=== PATIENT | male | born 1990 | race Caucasian/White ===

== ENCOUNTER 2017-05-06 15:52 | Emergency (ER) | payer OTHER ==
[~2017-05-06] VITALS: Ht 160 cm; Wt 60.0 kg
[2017-05-06 15:58] VITALS: Ht 160 cm; Wt 60.0 kg
[2017-05-06] MEDS ORDERED: ONDANSETRON 4 MG INJ IV STA (16:08)
[2017-05-06] MEDS ORDERED: morphine 4 MG/ML VIAL IV STA (16:08)
[2017-05-06] MEDS ORDERED: SOD CHLORIDE 0.9% 1,000 ML IV STA (16:08)
[2017-05-06 16:40] LABS: BASOPHIL # 0.1 10^3/ul (0.0-0.1); BASOPHILS % 1.2 % (0.0-2.0); EOSINOPHILS # 0.3 10^3/ul (0.0-0.5); EOSINOPHILS % 4.1 % (0.0-7.0); HEMATOCRIT 41.3 % (42.0-52.0); HEMOGLOBIN 14.4 g/dl (14.0-18.0); LYMPHOCYTES # 2.5 10^3/ul (0.8-2.9); MEAN CORPUSCULAR HEMOGLOBIN 31.4 pg (29.0-33.0); MEAN CORPUSCULAR HGB CONC 34.9 g/dl (32.0-37.0); MEAN CORPUSCULAR VOLUME 90.2 fl (82.0-101.0); MEAN PLATELET VOLUME 8.9 fl (7.4-10.4); MONOCYTE # 0.4 10^3/ul (0.3-0.9); MONOCYTES % 5.5 % (0.0-11.0); NEUTROPHIL # 4.3 10^3/ul (1.6-7.5); NEUTROPHILS % 55.9 % (39.0-77.0); PLATELET COUNT 205 10^3/UL (140-415); RED BLOOD COUNT 4.58 10^6/ul (4.70-6.10); RED CELL DISTRIBUTION WIDTH 12.6 % (11.5-14.5); WHITE BLOOD COUNT 7.6 10^3/ul (4.8-10.8)
[2017-05-06] MEDS ORDERED: LORAZEPAM 2 MG INJ IV ONE (17:30)
--- NOTE | 2017-05-06 17:30 | RADRPT ---
AMENDMENT: 05/06/2017 6:50:00 PM Jez Zapata M.D Correction in the Impression: 1. Findings which may represent an ileus versus enterocolitis as described above. PROCEDURE: CT abdomen and pelvis without IV contrast. CLINICAL INDICATION: Abdominal pain TECHNIQUE: CT scan of the abdomen and pelvis without contrast was performed on the [employer] volumetric [address] scanner. The patient was scanned without intravenous contrast. Coronal and sagittal refo rmatted images were obtained from the axial source images. The CTDI vol is 4.03 mGy and the DLP is 2 04 mGy-cm. COMPARISON: None. FINDINGS: CT abdomen: Emphysematous changes in the lung bases is seen. The heart size is not enlarged and is without fior cardial thickening or effusion. The liver is normal in size and is without focal mass or intrahepatic biliary dilatation. Extensive fatty infiltration of the liver is seen. The spleen is normal in size and homogeneous in density. T he stomach is grossly unremarkable. pancreatic duct is mildly prominent in size. The remainder of the pancreas as visualized is normal. The gallbladder has been removed. No common bile duct dilata tion is seen. The adrenal glands are symmetric and normal. The kidneys are symmetrically unremarkab le as well. No renal calculus or obstructive uropathy or mass lesion is seen. The aorta is of normal in caliber. There is no retroperitoneal lymphadenopathy. The bruno hepatis region is clear. The Save small bowel is distended and fluid-filled. In addition, the right hemico kendrick and transverse colon are distended and fluid-filled. Prominent lymph nodes in the central mesent victor manuel are seen. No inflammatory changes in the periappendiceal region is seen. CT pelvis: The pelvic organs are normal. The pelvic sidewalls and inguinal regions are clear. No pelvic mass, lymphadenopathy, or free fluid is seen. No acute inflammation is seen. The urinary bladder is wit hin normal limits. The surrounding osseous structures are unremarkable. No osteolytic or osteoblastic lesion is detect ed. IMPRESSION: 1. Findings which may represent an ileus versus under colitis as described above. 2. Prominent mesenteric lymph nodes which may be reactive in nature. 3. Extensive fatty infiltration of the liver. 4. Status post cholecystectomy. 5. Mildly prominent pancreatic duct. RPTAT: HPNM Roger Zapata, Physician Date Time Electronically viewed and signed by Roger Zapata, Physician on 05/06/2017 18:49 /
[2017-05-06 17:35] LABS: ALBUMIN/GLOBULIN RATIO 1.81; CALCIUM 8.1 mg/dl (8.4-10.2); CREATININE 0.8 mg/dl (0.61-1.24); POTASSIUM 3.1 mmol/L (3.5-5.1); TOTAL PROTEIN 6.2 g/dl (6.1-8.1)
[2017-05-06] MEDS ORDERED: ONDA4TAB14 PO (17:57)
[2017-05-06] MEDS ORDERED: HYDR-902 PO (17:57)
[2017-05-06 18:05] VITALS: BP 129/88; PULSE 101; RESP 20
--- NOTE | 2017-05-06 18:50 | ERD ---
ER Documentation Chief Complaint Date/Time DATE: 05/06/17 TIME: 18:48 Chief Complaint ABDOMINAL PAIN AND NAUSEA HPI Patient is a 26-year-old male with hypertension and short-bowel syndrome who presents with "abdominal pain". He said that he has had short bowel syndrome since . He has had abdominal pain since then. He said that recently the pain got worse. It is left-sided abdominal pain is constant and sharp in nature. He has no fevers. He has had vomiting and diarrhea. He does admit to alcohol today. Upon review of old medical records the patient one previous visit to the ER in 2016. ROS All systems reviewed and are negative except as per history of present illness. Medications Home Meds Active Scripts Ondansetron (Ondansetron Odt) 4 Mg Tab.rapdis, 4 MG PO Q6H Y for NAUSEA AND/OR VOMITING, #30 TAB Prov:JEREMY CAPELLAN MD 05/06/17 Hydrocodone/Acetaminophen ([place] 10-325 Tablet) 1 Each Tablet, 1 TAB PO Q6H Y for PAIN, #7 TAB Prov:JEREMY CAPELLAN MD 05/06/17 Allergies Allergies: Coded Allergies: erythromycin base (Unverified Allergy, Unknown, 05/06/17) PMhx/Soc Medical and Surgical Hx: pt denies Surgical Hx Hx Psychiatric Problems: Yes Hx Miscellaneous Medical Probl: Yes (short bowel syndrome) Hx Alcohol Use: Yes (alcoholic ) Hx Substance Use: No (unknown ) Smoking Status: Former smoker FmHx Family History: diabetes Physical Exam Vitals Vital Signs Date Time Temp Pulse Resp B/P Pulse Ox O2 Delivery O2 Flow Rate FiO2 05/06/17 18:05 101 20 129/88 99 Room Air 05/06/17 15:58 98.1 94 18 122/76 95 Physical Exam Const: Moderate distress secondary to pain Head: Atraumatic Eyes: Normal Conjunctiva ENT: Normal External Ears, Nose and Mouth. Neck: Full range of motion..~ No meningismus. Resp: Clear to auscultation bilaterally Cardio: Regular rate and rhythm, no murmurs Abd: Diffuse tenderness to palpation without rebound or guarding Skin: No petechiae or rashes Back: No midline or flank tenderness Ext: No cyanosis, or edema Neur: Awake and alert Psych: Normal Mood and Affect Result Diagram: 05/06/17 1625 05/06/17 1705 Results 24 hrs Laboratory Tests Test 05/06/17 16:25 05/06/17 17:05 White Blood Count 7.610^3/ul Red Blood Count 4.5810^6/ul Hemoglobin 14.4g/dl Hematocrit 41.3% Mean Corpuscular Volume 90.2fl Mean Corpuscular Hemoglobin 31.4pg Mean Corpuscular Hemoglobin Concent 34.9g/dl Red Cell Distribution Width 12.6% Platelet Count 98104^3/UL Mean Platelet Volume 8.9fl Neutrophils % 55.9% Lymphocytes % 33.0% Monocytes % 5.5% Eosinophils % 4.1% Basophils % 1.2% Nucleated Red Blood Cells % 0.0/100WBC Neutrophils # 4.310^3/ul Lymphocytes # 2.510^3/ul Monocytes # 0.410^3/ul Eosinophils # 0.310^3/ul Basophils # 0.110^3/ul Nucleated Red Blood Cells # 0.010^3/ul Sodium Level 150mmol/L Potassium Level 3.1mmol/L Chloride Level 107mmol/L Carbon Dioxide Level 23mmol/L Anion Gap 23 Blood Urea Nitrogen 4mg/dl Creatinine 0.80mg/dl Glucose Level 121mg/dl Calcium Level 8.1mg/dl Total Bilirubin 0.0mg/dl Direct Bilirubin 0.00mg/dl Indirect Bilirubin 0.0mg/dl Aspartate Amino Transf (AST/SGOT) 61IU/L Alanine Aminotransferase (ALT/SGPT) 66IU/L Alkaline Phosphatase 98IU/L Total Protein 6.2g/dl Albumin 4.0g/dl Globulin 2.20g/dl Albumin/Globulin Ratio 1.81 Lipase 210U/L Current Medications Medications (Trade) Dose Ordered Sig/Noe Route PRN Reason Start Time Stop Time Status Last Admin Dose Admin Sodium Chloride (NS) 1,000 ml @ 1,000 mls/hr Q1H STAT IV 05/06/17 16:08 05/06/17 17:07 DC 05/06/17 16:28 Morphine Sulfate (morphine) 4 mg ONCE STAT IV 05/06/17 16:08 05/06/17 16:09 DC 05/06/17 16:50 Ondansetron HCl (Zofran Inj) 4 mg ONCE STAT IV 05/06/17 16:08 05/06/17 16:09 DC 05/06/17 16:48 Lorazepam (Ativan) 1 mg ONCE ONCE IV 05/06/17 17:30 05/06/17 17:31 DC 05/06/17 17:26 Procedures/MDM CT scan shows no acute surgical process per radiology. Smoking Cessation Therapy: Pt. was lectured for greater than 3 minutes on the health risks of continued smoking and the benefits of cessation. Patient is a 26-year-old male who presents with acute abdominal pain. The patient had a full workup including laboratory studies and CT scan of the abdomen and pelvis. There is no obvious sign of surgical process at this time. There was hypernatremia but the patient was given normal saline and it was likely hypovolemic hypernatremia. The patient has no signs of cholecystitis, peritonitis, appendicitis, or bowel obstruction. I believe outpatient management is appropriate at this time. He can return for any worsening symptoms. Departure Diagnosis: Primary Impression: Abdominal pain Abdominal location: generalized Qualified Code: R10.84 - Generalized abdominal pain Condition: Fair Patient Instructions: Abdominal Pain Referrals: [facility] YOU HAVE RECEIVED A MEDICAL SCREENING EXAM AND THE RESULTS INDICATE THAT YOU DO NOT HAVE A CONDITION THAT REQUIRES URGENT TREATMENT IN THE EMERGENCY DEPARTMENT. FURTHER EVALUATION AND TREATMENT OF YOUR CONDITION CAN WAIT UNTIL YOU ARE SEEN IN YOUR DOCTORS OFFICE WITHIN THE NEXT 1-2 DAYS. IT IS YOUR RESPONSIBILITY TO MAKE AN APPOINTMENT FOR FOLOW-UP CARE. IF YOU HAVE A PRIMARY DOCTOR --you should call your primary doctor and schedule an appointment IF YOU DO NOT HAVE A PRIMARY DOCTOR YOU CAN CALL OUR PHYSICIAN REFERRAL HOTLINE AT IF YOU CAN NOT AFFORD TO SEE A PHYSICIAN YOU CAN CHOSE FROM THE FOLLOWING [facility] [address] [facility]. [facility] [address] [facility] [address] [facility]. [facility] [address] [facility]. [facility] [address] [facility]. [facility]. [address] Additional Instructions: FOLLOW UP WITH YOUR PRIMARY CARE PHYSICIAN TOMORROW.Return to this facility if you are not improving as expected. JEREMY CAPELLAN MD May 06, 2017 18:50
== END 2017-05-06 18:08 | disposition home or self-care (01) ==
LOC: E/R 15:52
DX: R10.84 Generalized abdominal pain (principal); I10 Essential (primary) hypertension; R11.0 Nausea; R40.2142 Coma scale, eyes open, spontaneous, at arrival to emergency department; R40.2252 Coma scale, best verbal response, oriented, at arrival to emergency department; R40.2362 Coma scale, best motor response, obeys commands, at arrival to emergency department; Z87.891 Personal history of nicotine dependence
CPT/HCPCS: 74176; 80053; 83690; 85025; J2060; J2270; J2405; J7030; 36415; 96374; 96375

== ENCOUNTER 2017-07-18 21:26 | Emergency (ER) | payer OTHER ==
[~2017-07-18] VITALS: Ht 160 cm; Wt 56.0 kg
[~2017-07-18 21:26] MED LIST: HYDR-902 PO; ONDA4TAB14 PO
[2017-07-18 21:31] VITALS: Ht 160 cm; Wt 56.0 kg
[2017-07-18 22:25] LABS: BASOPHIL # 0.2 10^3/ul (0.0-0.1); BASOPHILS % 1.9 % (0.0-2.0); EOSINOPHILS # 0.3 10^3/ul (0.0-0.5); EOSINOPHILS % 3.5 % (0.0-7.0); HEMATOCRIT 44.3 % (42.0-52.0); LYMPHOCYTES % 37.4 % (15.0-51.0); MEAN CORPUSCULAR HEMOGLOBIN 31.2 pg (29.0-33.0); MEAN CORPUSCULAR HGB CONC 33.9 g/dl (32.0-37.0); MEAN CORPUSCULAR VOLUME 92.1 fl (82.0-101.0); MEAN PLATELET VOLUME 8.7 fl (7.4-10.4); MONOCYTE # 0.4 10^3/ul (0.3-0.9); MONOCYTES % 5.3 % (0.0-11.0); NEUTROPHIL # 4.1 10^3/ul (1.6-7.5); NEUTROPHILS % 51.5 % (39.0-77.0); PLATELET COUNT 254 10^3/UL (140-415); RED BLOOD COUNT 4.81 10^6/ul (4.70-6.10); RED CELL DISTRIBUTION WIDTH 12.8 % (11.5-14.5)
[2017-07-18] MEDS ORDERED: DIPHENHYDRAMINE 50 MG INJ ONE (22:32)
[2017-07-18] MEDS ORDERED: HALOPERIDOL 5 MG INJ ONE (22:33)
[2017-07-18] MEDS ORDERED: LORAZEPAM 2 MG INJ ONE (22:33)
[2017-07-18 22:48] LABS: ALBUMIN 3.6 g/dl (3.3-4.9); ALBUMIN/GLOBULIN RATIO 1.33; CALCIUM 8.7 mg/dl (8.4-10.2); CREATININE 0.87 mg/dl (0.61-1.24); POTASSIUM 3.9 mmol/L (3.5-5.1); TOTAL PROTEIN 6.3 g/dl (6.1-8.1)
[2017-07-18] MEDS ORDERED: HALOPERIDOL 5 MG INJ IM ONE (23:00)
[2017-07-18] MEDS ORDERED: LORAZEPAM 2 MG INJ IM ONE (23:00)
[2017-07-18] MEDS ORDERED: DIPHENHYDRAMINE 50 MG INJ IM ONE (23:00)
[2017-07-18 23:30] LABS: ACETAMINOPHEN < 10.0 ug/ml (10.0-30.0); SALICYLATE < 1.0 mg/dl (5.0-30.0)
--- NOTE | 2017-07-19 02:20 | RADRPT ---
PROCEDURE: CT ABDOMEN/PELVIS WITHOUT CONTRAST CLINICAL INDICATION: 27-year-old male with abdominal pain. TECHNIQUE: The study was performed utilizing a [employer] VCT 64-slice CT scanner. Direct axial s ections were obtained through the abdomen and pelvis without the use of intravenous contrast materia l. Sagittal and coronal reformations were obtained. One or more of the following dose reduction tech niques were utilized: automated exposure control, adjustment of the mA and/or kV according to patien t's size or use of iterative reconstruction technique. The images were reviewed on a PACS workstatio n. CTD/vol = 5.8 mGy; Total Exam DLP = 329 point a mGy-cm. COMPARISON: CT abdomen/pelvis May 06, 2017. FINDINGS: The lung bases are unremarkable. There is no evidence for significant pleural effusion. The liver has a normal size and contour. There is diffuse decreased density throughout the liver consistent wi th fatty infiltration but without focal areas of abnormal density. No intrahepatic nor extrahepatic biliary ductal dilatation is seen. Surgical clips are present within the gallbladder fossa from prio r cholecystectomy. The pancreas is without areas of abnormal attenuation. This spleen is identified and has a normal size without abnormal density. The adrenal glands are unremarkable. The kidneys ar e without abnormal density. No hydroureteronephrosis nor nephroureterolithiasis is evident. The urin selwyn bladder contains urine. There is mild retained stool within the colon without obstruction. The periappendiceal region is without inflammatory changes. There is no significant free fluid. The aort oiliac vessels are without aneurysmal dilatation. The osseous structures are intact. IMPRESSION: 1. Hepatic steatosis. 2. Status post cholecystectomy. 3. Mild retained stool without evidence for bowel obstruction. .Patricio Wolff MD, MD Date Time Electronically viewed and signed by .Patricio Wolff MD, MD on 07/19/2017 02:19 .M/
--- NOTE | 2017-07-19 03:27 | ERD ---
ER Documentation Chief Complaint Date/Time DATE: 07/19/17 TIME: 03:26 Chief Complaint bib ra from home for etoh HPI 27-year-old male brought in by home for alcohol abuse. Family called the patient is being combative. Upon arrival patient is very combative and requires chemical sedation. No history is able to be dissected at this time given the patient's altered mental status secondary to alcohol abuse. ROS All systems reviewed and are negative except as per history of present illness. Medications Home Meds Active Scripts Ondansetron (Ondansetron Odt) 4 Mg Tab.rapdis, 4 MG PO Q6H Y for NAUSEA AND/OR VOMITING, #30 TAB Prov:JEREMY CAPELLAN MD 05/06/17 Hydrocodone/Acetaminophen ([place] 10-325 Tablet) 1 Each Tablet, 1 TAB PO Q6H Y for PAIN, #7 TAB Prov:JEREMY CAPELLAN MD 05/06/17 Allergies Allergies: Coded Allergies: erythromycin base (Unverified Allergy, Unknown, 05/06/17) PMhx/Soc Medical and Surgical Hx: pt denies Medical Hx, pt denies Surgical Hx Hx Psychiatric Problems: Yes Hx Miscellaneous Medical Probl: Yes (short bowel syndrome) Hx Alcohol Use: No Hx Substance Use: No Hx Tobacco Use: No Smoking Status: Never smoker Physical Exam Vitals Vital Signs Date Time Temp Pulse Resp B/P Pulse Ox O2 Delivery O2 Flow Rate FiO2 07/19/17 00:37 113 22 102/53 99 Room Air 07/18/17 21:31 98.5 112 18 123/81 100 Physical Exam Const: [] Head: Atraumatic Eyes: Normal Conjunctiva ENT: Normal External Ears, Nose and Mouth. Neck: Full range of motion..~ No meningismus. Resp: Clear to auscultation bilaterally Cardio: Regular rate and rhythm, no murmurs Abd: Soft, non tender, non distended. Normal bowel sounds Skin: No petechiae or rashes Back: No midline or flank tenderness Ext: No cyanosis, or edema Neur: Awake and alert Psych: Normal Mood and Affect Result Diagram: 07/18/17220707/18/172207 Results 24 hrs Laboratory Tests Test 07/18/17 22:08 White Blood Count 8.010^3/ul Red Blood Count 4.8110^6/ul Hemoglobin 15.0g/dl Hematocrit 44.3% Mean Corpuscular Volume 92.1fl Mean Corpuscular Hemoglobin 31.2pg Mean Corpuscular Hemoglobin Concent 33.9g/dl Red Cell Distribution Width 12.8% Platelet Count 73088^3/UL Mean Platelet Volume 8.7fl Neutrophils % 51.5% Lymphocytes % 37.4% Monocytes % 5.3% Eosinophils % 3.5% Basophils % 1.9% Nucleated Red Blood Cells % 0.0/100WBC Neutrophils # 4.110^3/ul Lymphocytes # 3.010^3/ul Monocytes # 0.410^3/ul Eosinophils # 0.310^3/ul Basophils # 0.210^3/ul Nucleated Red Blood Cells # 0.010^3/ul Sodium Level 146mmol/L Potassium Level 3.9mmol/L Chloride Level 108mmol/L Carbon Dioxide Level 27mmol/L Anion Gap 15 Blood Urea Nitrogen 8mg/dl Creatinine 0.87mg/dl Glucose Level 99mg/dl Calcium Level 8.7mg/dl Total Bilirubin 0.0mg/dl Direct Bilirubin 0.00mg/dl Indirect Bilirubin 0.0mg/dl Aspartate Amino Transf (AST/SGOT) 133IU/L Alanine Aminotransferase (ALT/SGPT) 182IU/L Alkaline Phosphatase 101IU/L Total Protein 6.3g/dl Albumin 3.6g/dl Globulin 2.70g/dl Albumin/Globulin Ratio 1.33 Lipase 142U/L Salicylates Level < 1.0mg/dl Acetaminophen Level < 10.0ug/ml Ethyl Alcohol Level 343.0mg/dl Current Medications Medications (Trade) Dose Ordered Sig/Noe Route PRN Reason Start Time Stop Time Status Last Admin Dose Admin Haloperidol (Haldol) 5 mg ONCE ONCE IM 07/18/17 23:00 07/18/17 23:01 DC 07/18/17 22:54 Lorazepam (Ativan) 2 mg ONCE ONCE IM 07/18/17 23:00 07/18/17 23:01 DC 07/18/17 22:43 Diphenhydramine HCl (Benadryl) 50 mg ONCE ONCE IM 07/18/17 23:00 07/18/17 23:01 DC 07/18/17 23:07 Diphenhydramine HCl (Benadryl) 50 mg STK-MED ONCE .ROUTE 07/18/17 22:32 07/18/17 22:33 DC Haloperidol (Haldol) 5 mg STK-MED ONCE .ROUTE 07/18/17 22:33 07/18/17 22:34 DC Lorazepam (Ativan) 2 mg STK-MED ONCE .ROUTE 07/18/17 22:33 07/18/17 22:34 DC Procedures/MDM Decision-makin-year-old male here for combative behavior post alcohol abuse. At this point patient is clinically stable and he is sobered up here in the emergency department. He stable for outpatient management. He has been advised to stop drinking. Observation Note: Time: 14 hours Family Hx: No Hypertension Evaluation: Multiple exams showed improving symptoms and no evidence of neurologic dysfunction Departure Diagnosis: Primary Impression: Alcoholic intoxication Complication of substance-induced condition: uncomplicated Qualified Code: F10.920 - Alcoholic intoxication without complication Condition: Stable Patient Instructions: Alcohol Intoxication BONITA MALDONADO Jul 19, 2017 03:27
[2017-07-19 07:00] VITALS: BP 108/62; PULSE 89; RESP 20; TEMP 98.1
== END 2017-07-19 09:00 | disposition home or self-care (01) ==
LOC: E/R 21:26
DX: F10.920 Alcohol use, unspecified with intoxication, uncomplicated (principal)
CPT/HCPCS: 74176; 80053; 80306; 83690; 85025; 96372; J1200; J1630; J2060; Z7502

== ENCOUNTER 2018-08-19 09:38 | Emergency (ER) | END 2018-08-19 19:07 | disposition home or self-care (01) ==